=== PATIENT | female | born 1985 | race Two or more races ===

== ENCOUNTER 2022-04-24 00:18 | Emergency (ER) | payer MEDICAID ==
[~2022-04-24] VITALS: Ht 162.6 cm; Wt 84.7 kg
[2022-04-24] MEDS ORDERED: ONDANSETRON HCL 4MG/2ML INJ IM STA (02:11)
[2022-04-24] MEDS ORDERED: KETOROLAC 60MG/2ML VIAL IM STA (02:11)
[2022-04-24 02:27] VITALS: BP 158/103
[2022-04-24 02:28] LABS: EOSINOPHILS % 2.3 % (0.0-5.0); HEMATOCRIT. 31.4 % (36.0-48.0); HEMOGLOBIN. 9.7 g/dL (12.0-16.0); LYMPHOCYTES % 17.1 % (20.0-50.0); MEAN CORPUSCULAR HEMOGLOBIN 19.3 pg (28.0-32.0); MEAN CORPUSCULAR VOLUME 62.4 fL (81.0-99.0); MONOCYTES % 8.6 % (2.0-8.0); PLATELET 341 x1000/uL (130-400); RED BLOOD CELL COUNT 5.04 mill/uL (4.2-5.4); RED CELL DISTRIBUTION WIDTH 18.7 % (11.6-14.6)
[2022-04-24 02:32] LABS: CHLORIDE 102 mEq/L (98-107)
[2022-04-24 02:39] LABS: CLARITY URINE CLEAR (CLEAR); COLOR URINE YELLOW (YELLOW)
[2022-04-24 02:40] LABS: KETONES URINE NEGATIVE (NEGATIVE); LEUKOCYTE ESTERASE URINE NEGATIVE (NEGATIVE); NITRITE URINE NEGATIVE (NEGATIVE); OCCULT BLOOD URINE NEGATIVE (NEGATIVE); PH URINE 6.5 (4.5-8.0); PROTEIN URINE TRACE (NEGATIVE); UROBILINOGEN URINE 0.2 E.U./dL (0.2-1.0)
[2022-04-24] MEDS ORDERED: SODIUM CHLORIDE 0.9% 1,000 ML IV NR (02:45)
[2022-04-24 02:46] LABS: PLATELET ESTIMATE NORMAL
== END 2022-04-24 03:00 | disposition left against medical advice (07) ==
LOC: ER 00:18
DX: R10.9 Unspecified abdominal pain (principal); R07.81 Pleurodynia; R06.00 Dyspnea, unspecified
CPT/HCPCS: 36415; 80053; 81003; 81025; 83690; 85025; 96372; 99284; J1885; J2405

== ENCOUNTER 2023-12-09 06:48 | Emergency (ER) | payer MEDICAID, OTHER ==
[~2023-12-09] VITALS: Ht 162.6 cm; Wt 88.0 kg
[2023-12-09 06:53] VITALS: O2SAT 100
[2023-12-09 07:18] LABS: BASOPHILS % 1.4 % (0.0-2.0); EOSINOPHILS % 2.9 % (0.0-5.0); HEMATOCRIT. 30.2 % (36.0-48.0); HEMOGLOBIN. 9.2 g/dL (12.0-16.0); LYMPHOCYTES % 25.9 % (20.0-50.0); MEAN CORPUSCULAR HEMOGLOBIN 17.7 pg (28.0-32.0); MEAN CORPUSCULAR HGB CONC 30.4 g/dL (31.0-37.0); MEAN CORPUSCULAR VOLUME 58.1 fL (81.0-99.0); MEAN PLATELET VOLUME 8.8 fl (7.4-10.4); MONOCYTES % 9.7 % (2.0-8.0); NEUTROPHILS % 60.1 % (40.0-76.0); PLATELET 436 x1000/uL (130-400); RED BLOOD CELL COUNT 5.19 mill/uL (4.2-5.4); RED CELL DISTRIBUTION WIDTH 19.7 % (11.6-14.6); WHITE BLOOD COUNT 11.7 x1000/uL (4.5-11.0)
[2023-12-09] MEDS: SODIUM CHLORIDE 0.9% 1,000 ML IV ONE (07:21)
[2023-12-09 07:22] LABS: ADD RBC MORPHOLOGY YES; DIFFERENTIAL COMMENT 1
[2023-12-09 07:23] LABS: CHLORIDE 107 mEq/L (98-107); POTASSIUM 3.7 mEq/L (3.5-5.1); SODIUM 138 mEq/L (136-145)
[2023-12-09] MEDS: ONDANSETRON HCL 4MG/2ML INJ IV ONE (07:23)
[2023-12-09] MEDS: MORPHINE SULFATE 4 MG/ML INJ (FOR IV/IM USE) IV ONE (07:23)
[2023-12-09 07:24] LABS: CALCIUM 8.9 mg/dL (8.7-10.4)
[2023-12-09 07:27] LABS: CARBON DIOXIDE 24 mEq/L (21-32)
[2023-12-09 07:29] LABS: CREATININE 0.9 mg/dL (0.6-1.0); GLUCOSE 104 mg/dL (70-105); UREA NITROGEN BLOOD 13 mg/dL (9-23)
[2023-12-09 07:31] LABS: ALANINE AMINOTRANSFERASE 16 IU/L (10-49); ALBUMIN 4.4 g/dL (3.2-4.8); ASPARTATE AMINOTRANSFERASE 21 IU/L (<34); BILIRUBIN TOTAL 0.3 mg/dL (0.1-1.0); PROTEIN TOTAL 7.7 g/dL (6.0-8.3)
[2023-12-09 07:45] LABS: CHLORIDE 107 mEq/L (98-107); POTASSIUM 3.7 mEq/L (3.5-5.1); SODIUM 137 mEq/L (136-145)
[2023-12-09 07:46] LABS: CARBON DIOXIDE 23 mEq/L (21-32)
[2023-12-09 07:47] LABS: CALCIUM 8.7 mg/dL (8.7-10.4)
[2023-12-09 07:51] LABS: CREATININE 0.8 mg/dL (0.6-1.0); GLUCOSE 102 mg/dL (70-105); UREA NITROGEN BLOOD 14 mg/dL (9-23)
[2023-12-09 08:12] LABS: HCG SCREEN NEGATIVE
[2023-12-09 08:34] LABS: ANISOCYTOSIS 2+; MICROCYTOSIS 3+; OVALOCYTES 1+; PLATELET ESTIMATE INCREASED
[2023-12-09] MEDS ORDERED: ONDA4TAB50 MT (12:33)
[2023-12-09] MEDS ORDERED: IBUP-1525 MT (12:33)
[2023-12-09] MEDS ORDERED: HYDR-4001 MT (12:33)
[2023-12-09] MEDS: HYDROCODONE/ACETAMINOPHEN 5/325MG TABLET PO ONE (12:53)
[2023-12-09 12:59] VITALS: BP 118/84; PULSE 94; RESP 15; TEMP 98
== END 2023-12-09 13:01 | disposition home or self-care (01) ==
LOC: ER 06:55
DX: K80.50 Calculus of bile duct without cholangitis or cholecystitis without obstruction (principal); Z98.890 Other specified postprocedural states
CPT/HCPCS: 80053; 80048; 84703; 83690; 85025; 36415; 76705; 96374; 96375; 99285; J2405; J2270; J7030; Z7610